=== PATIENT | female | born 1950 | race Caucasian/White ===

== ENCOUNTER 2016-07-13 16:13 | Emergency (ER) | payer MEDICARE, MEDICAID ==
[~2016-07-13] VITALS: Ht 157.5 cm; Wt 56.5 kg
[~2016-07-13 16:13] MED LIST: TEMA7.5C9 PO; TRAM50TA PO
[2016-07-13 16:14] VITALS: BP 155/82; PULSE 92; RESP 20; TEMP 97.9; O2SAT 97
[2016-07-13 16:29] VITALS: BP 176/82; PULSE 86; RESP 16; TEMP 98.4; O2SAT 96
--- NOTE | 2016-07-13 16:56 | PD ---
HPI Chief Complaint: Complaint Time Seen by Provider: 16:54 Travel History International Travel<30 days: No Contact w/Intl Traveler<30days: No Traveled to known affect area: No History of Present Illness HPI Patient comes in complaining of possible urinary tract infection. Patient reports her urine has been cloudy over the past couple of weeks, began having low back pain the past 2 days ago, and today was a little blood in her urine. Patient denies doing anything for this. Patient states she does [place] chronic constipation has take laxatives regularly for this. Patient also reports she has not been drinking as much fluid as normal secondary to "being too busy". Patient denies doing anything for this. Patient states she tried getting in with multiple doctors as well as urgent care today however was unable to get in anywhere else, so she decided to come to the emergency Department for further treatment and evaluation. She denies any fevers, vaginal discharge, nausea, vomiting, chest pain, shortness of breath, or abdominal pain. PFSH Past Medical History Arthritis: Yes (LEFT ARM) Neurologic: Yes (CARPAL TUNNEL) ?: Not Past Surgical History Abdominal Surgery: Yes (HERNIA REPAIR) Genitourinary Surgery: Yes Gynecologic Surgery: Yes Hysterectomy: Yes Social History Alcohol Use: No Tobacco Use: No Substance Use: No Allergies-Medications (Allergen,Severity, Reaction): Coded Allergies: No Known Allergies (Verified , 07/13/16) Reported Meds & Prescriptions Reported Meds & Active Scripts Active Bactrim DS (Sulfamethoxazole-Trimethoprim) 800-160 Mg Tab 1 Tab PO BID Restoril (Temazepam) 7.5 Mg Cap 7.5 Mg PO HS PRN Reported Tramadol (Tramadol HCl) 50 Mg Tab 50 Mg PO Q8H PRN Review of Systems Except as stated in HPI: all other systems reviewed are Neg Physical Exam Narrative GENERAL: Well-developed, well nourished, in no acute distress, and non-ill appearing. SKIN: Warm and dry. HEAD: Atraumatic. Normocephalic. EYES: Pupils equal and round. EOMI. No scleral icterus. No injection or drainage. ENT: No nasal bleeding or discharge. Mucous membranes pink and moist. NECK: Trachea midline. Supple. No nuclear rigidity. CARDIOVASCULAR: Regular rate and rhythm. No murmur appreciated. RESPIRATORY: No accessory muscle use. No respiratory distress. GASTROINTESTINAL: Abdomen soft, non-tender, nondistended. Hepatic and splenic margins not palpable. Normal bowel sounds 4. No pulsatile mass. MUSCULOSKELETAL: No obvious deformities. No clubbing. No cyanosis. No edema. Full range of motion. NEUROLOGICAL: Awake and alert. No obvious cranial nerve deficits. Motor grossly within normal limits. Normal speech. PSYCHIATRIC: Appropriate mood and affect; insight and judgment normal. Data Data Last Documented VS Vital Signs Date Time Temp Pulse Resp B/P Pulse Ox O2 Delivery O2 Flow Rate FiO2 07/13/16 16:29 98.4 86 16 176/82 96 Room Air Orders Urinalysis - C+S If Indicated (07/13/16 16:51) Urine Culture (07/13/16 16:22) Sulfamet-Trimeth Ds 800-160 Mg (Bactrim (07/13/16 18:15) Labs Laboratory Tests Test 07/13/16 16:22 Urine Color LIGHT-YELLOW Urine Turbidity HAZY Urine pH 6.5 Urine Specific [place] 1.005 Urine Protein 30 mg/dL Urine Glucose (UA) NEG mg/dL Urine Ketones NEG mg/dL Urine Occult Blood MOD Urine Nitrite NEG Urine Bilirubin NEG Urine Urobilinogen LESS THAN 2.0 MG/DL Urine Leukocyte Esterase LARGE Urine RBC 20 /hpf Urine WBC /hpf Urine WBC Clumps MANY Urine Squamous Epithelial 1 /hpf Cells Urine Bacteria RARE /hpf Urine Mucus FEW /lpf Microscopic Urinalysis Comment CULTURE INDICATED MDM Medical Decision Making Medical Screen Exam Complete: Yes Emergency Medical Condition: Yes Differential Diagnosis UTI, pyelonephritis, renal calculi, other Narrative Course The patient presentation with history and evaluation are consistent with UTI. There is no evidence of pyelonephritis. The patient is tolerating fluids and is afebrile. There is no clinical evidence to suggest atypical cervicitis, PID, appendicitis. The patient was discharged on antibiotics and given warnings to return if condition worsens in any way, fever, vomiting and unable to tolerate medications or fluids, worsening back pain or as needed. The patient was instructed to follow up with their physician. The patient agrees with plan of care. Patient in no obvious distress upon re-evaluation. All pertinent laboratory result(s) discussed with patient. Discussed patient with Dr. Mccarty, who is in agreement with plan of care and disposition. Patient was asked if they wanted to speak to my attending, which the patient did not wish to do at this time. Any questions/concerns in reference to patient diagnosis/condition discussed and clarified prior to patient's discharge. Reinforced sheer importance of close follow up with patient's primary physician or primary care clinic. Instructed patient to return to ED immediately, if symptoms return/worsen. Pt showed understanding of above instructions. Further instructions and recommendations were detailed in discharge paperwork. Pt ambulated without difficulty out of ED at discharge. Diagnosis Primary Impression: Urinary tract infection Qualified Code: N39.0 - Urinary tract infection with hematuria, site unspecified Patient Instructions: General Instructions, Urinary Tract Infection in Women ( ED) Additional Instructions: Follow-up with your primary care physician this week for evaluation. Take all medication as prescribed. Return to the emergency department if symptoms get worse. Med/Other Pt SpecificInfo: Prescription(s) given Scripts Sulfamethoxazole-Trimethoprim (Bactrim DS)800-160 Mg Tab1 Tab PO BID #14 TAB Ref 0 Prov:Otto Mccarty MD 07/13/16 Disposition: 01 DISCHARGE HOME Condition: Stable Jace Parker Jul 13, 2016 16:56
[2016-07-13 17:12] LABS: BACTERIA, URINE RARE /hpf; BLOOD, URINE MOD (NEG); GLUCOSE,URINE NEG (NEG); KETONE, URINE NEG (NEG); MUCUS URINE FEW /lpf (OCC); NITRITE,URINE NEG (NEG); PH, URINE 6.5 (5.0-8.5); SQUAMOUS EPITHELIAL CELL URINE 1 /hpf (0-5); URINE COLOR LIGHT-YELLOW (YELLW/STRAW)
[2016-07-13 17:13] LABS: COMMENT (UR) CULTURE INDICATED; CULTURE IF INDICATED CULTURE INDICATED
[2016-07-13] MEDS ORDERED: BACT800T5 PO (17:28)
[2016-07-13] MEDS ORDERED: SULFAMETHOXAZOLE-TRIMETHOPRIM DS 800-160 MG TAB PO ONE (18:15)
[2016-11-09] MEDS ORDERED: DICL50TA3 PO (14:42)
[2016-11-09] MEDS ORDERED: TEMA7.5C9 PO (14:58)
== END 2016-07-13 18:24 | disposition home or self-care (01) ==
LOC: NEPC 16:13
DX: N39.0 Urinary tract infection, site not specified (principal); R31.9 Hematuria, unspecified; B96.20 Unspecified Escherichia coli [E. coli] as the cause of diseases classified elsewhere; M54.5 Low back pain; K59.00 Constipation, unspecified; Z86.69 Personal history of other diseases of the nervous system and sense organs
CPT/HCPCS: 81001; 87077; 87086; 87186; 99283

== ENCOUNTER → 2017-11-29 | Outpatient (CLI) | payer MEDICARE, MEDICAID ==
[~2017-11-29] MED LIST changes: +DICL50TA3 PO
[2017-11-29 13:28] LABS: HEMATOCRIT 41.7 % (35.0-46.0); MEAN CELL VOLUME 89.4 FL (80.0-100.0); MEAN CORPUSCULAR HEMOGLOBIN 30.1 PG (27.0-34.0); MEAN CORPUSCULAR HGB CONC 33.7 % (32.0-36.0); MEAN PLATELET VOLUME 8.6 FL (7.0-11.0); PLATELET COUNT 186 TH/MM3 (150-450); RED BLOOD COUNT 4.67 MIL/MM3 (4.00-5.30); RED CELL DISTRIBUTION WIDTH 12.8 % (11.6-17.2); WHITE BLOOD COUNT 6.2 TH/MM3 (4.0-11.0)
[2017-11-29 13:48] LABS: WESTERGREN SEDIMENTATION RATE 2 mm/hr (0-30)
[2017-11-29 14:04] LABS: FREE T4 0.88 NG/DL (0.76-1.46)
== END ==
LOC: CLAB 12:50
PROVIDERS: ATTEND Internal Medicine Cardiovascular Disease
DX: R00.2 Palpitations (principal); E78.5 Hyperlipidemia, unspecified; R06.02 Shortness of breath; M79.604 Pain in right leg; Z82.49 Family history of ischemic heart disease and other diseases of the circulatory system
CPT/HCPCS: 36415; 84439; 84443; 85027; 85652